=== PATIENT | female | born 1970 | race African-American/Black ===

== ENCOUNTER 2017-02-20 17:22 | Emergency (ER) | payer BC, OTHER ==
[2017-02-20 17:46] VITALS: BP 146/86; PULSE 69; TEMP 98.5; BMI 25.0
[2017-02-20] MEDS ORDERED: KETOROLAC TROMETHAMINE 60 MG/2 ML VIAL ONE (18:17)
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
[2017-02-20] MEDS ORDERED: KETOROLAC TROMETHAMINE 60 MG/2 ML VIAL IM ONE (18:26)
== END 2017-02-20 20:04 | disposition home or self-care (01) ==
LOC: JERFT 17:22
PROC: 3E0233Z Introduction of Anti-inflammatory into Muscle, Percutaneous Approach (ICD-10-PCS; principal; 2017-02-20)
DX: G44.319 Acute post-traumatic headache, not intractable (principal); S39.82XA Other specified injuries of lower back, initial encounter; V43.52XA Car driver injured in collision with other type car in traffic accident, initial encounter; Y92.414 Local residential or business street as the place of occurrence of the external cause; Y93.89 Activity, other specified; Y99.9 Unspecified external cause status
CPT/HCPCS: 99281-25

== ENCOUNTER 2018-10-10 19:34 | Emergency (ER) | payer OTHER ==
[2018-10-10 19:48] VITALS: BP 133/88; PULSE 89; TEMP 98.6; BMI 24.9
--- NOTE | 2018-10-10 19:56 | PDOC ---
Rapid Medical Evaluation Chief Complaint: Nausea/Vomiting Time Seen by Provider: 10/10/18 19:55 Medical Evaluation: Allergies Allergy/AdvReac Type Severity Reaction Status Date / Time sulfamethoxazole Allergy Verified 10/10/18 19:48 [From Bactrim] trimethoprim [From Bactrim] Allergy Verified 10/10/18 19:48 Vital Signs Temp Pulse Resp BP Pulse Ox 98.6 F 89 17 133/88 100 10/10/18 19:45 10/10/18 19:45 10/10/18 19:45 10/10/18 19:45 10/10/18 19:45 10/10/18 20:01 I have performed a brief in-person evaluation of this patient. The patient presents with a chief complaint of: abdominal pain Pertinent physical exam findings:stable and in NAD, non-focal I have ordered the following:labs The patient will proceed to the ED for further evaluation. Discharge Disposition - Discharge Dispostion Last Admission D/C Date: 05/07/99 - Referrals - Patient Instructions - Post Discharge Activity
[2018-10-10 20:16] LABS: BASO % 0.7 % (0-2.0); EOS % 0.7 % (0-4.5); HEMATOCRIT 37.3 % (32.4-45.2); HEMOGLOBIN 12.3 GM/dL (10.7-15.3); LYMPH % 28.9 % (8-40); MCH 28.6 pg (25.7-33.7); MEAN CELL VOLUME 86.9 fl (80-96); MEAN PLT VOLUME 7.8 fl (7.5-11.1); MONO % 6.2 % (3.8-10.2); NEUT % 63.5 % (42.8-82.8); PLATELET COUNT 229 K/MM3 (134-434); RDW 14.8 % (11.6-15.6); WHITE BLOOD COUNT 8.4 K/mm3 (4.0-10.0)
[2018-10-10] MEDS ORDERED: morphine CARPU-JECT 4 MG/1 ML DISP.SYRIN IVPUSH ONE (20:16)
[2018-10-10] MEDS ORDERED: ONDANSETRON 4 MG/2 ML VIAL IVPUSH ONE (20:16)
[2018-10-10] MEDS ORDERED: SODIUM CHLORIDE 1,000 ML IV STA (20:16)
[2018-10-10] MEDS ORDERED: morphine SULFATE 4 MG/ML VIAL ONE (20:44)
[2018-10-10] MEDS ORDERED: ONDANSETRON 4 MG/2 ML VIAL ONE (20:45)
[2018-10-10 20:53] LABS: ALBUMIN 4.1 g/dl (3.4-5.0); ALK PHOS 52 U/L (45-117); ANION GAP 6 MMOL/L (8-16); BILIRUBIN,TOTAL 0.6 mg/dL (0.2-1); BLOOD UREA NITROGEN 8 mg/dL (7-18); CALCIUM 9.2 mg/dL (8.5-10.1); CHLORIDE 109 mmol/L (98-107); CO2 26 mmol/L (21-32); CREATININE 0.6 mg/dL (0.55-1.3); GLUCOSE,RANDOM 109 mg/dL (74-106); LIPASE 217 U/L (73-393); POTASSIUM 3.9 mmol/L (3.5-5.1); SGOT/AST 17 U/L (15-37); SGPT/ALT 18 U/L (13-61); SODIUM 142 mmol/L (136-145); TOT PROT 7.1 g/dl (6.4-8.2)
--- NOTE | 2018-10-10 21:30 | PDOC ---
History of Present Illness - General Chief Complaint: Nausea/Vomiting Stated Complaint: NAUSEA Time Seen by Provider: 10/10/18 19:55 History Source: Patient Exam Limitations: No Limitations Past History - Past Medical History Allergies/Adverse Reactions: Allergies Allergy/AdvReac Type Severity Reaction Status Date / Time sulfamethoxazole Allergy Verified 10/10/18 19:48 [From Bactrim] trimethoprim [From Bactrim] Allergy Verified 10/10/18 19:48 Home Medications: Ambulatory Orders Cyclobenzaprine HCl [Flexeril 10 mg] 10 mg PO BID PRN #20 tablet MDD 2 02/20/17 Ibuprofen [Motrin -] 600 mg PO TID #21 tablet 02/20/17 Anemia: Yes COPD: No - Suicide/Smoking/Psychosocial Hx Smoking Status: No Smoking History: Current every day smoker Have you smoked in the past 12 months: Yes Number of Cigarettes Smoked Daily: 3 Information on smoking cessation initiated: No Hx Alcohol Use: No Drug/Substance Use Hx: No Substance Use Type: None *Physical Exam - Vital Signs Last Vital Signs Temp Pulse Resp BP Pulse Ox 98.6 F 89 17 133/88 100 10/10/18 19:45 10/10/18 19:45 10/10/18 19:45 10/10/18 19:45 10/10/18 19:45 - Physical Exam General Appearance: Yes: Mild Distress (due to pain) Respiratory/Chest: positive: Lungs Clear, Normal Breath Sounds. negative: Respiratory Distress Cardiovascular: positive: Regular Rhythm, Regular Rate, S1, S2. negative: Murmur Gastrointestinal/Abdominal: positive: Soft, Tenderness (along RUQ and LUQ (RUQ> LUQ), +montoya's sign). negative: Distended, Guarding, Rebound, Hernia, Mass Musculoskeletal: negative: CVA Tenderness Integumentary: positive: Normal Color Neurologic: positive: Alert, Normal Mood/Affect ED Treatment Course - LABORATORY CBC & Chemistry Diagram: 10/10/18 20:00 10/10/18 20:00 - ADDITIONAL ORDERS Additional order review: Laboratory Results 10/10/18 20:00 Sodium 142 Potassium 3.9 Chloride 109 H Carbon Dioxide 26 Anion Gap 6 L BUN 8 Creatinine 0.6 Creat Clearance w eGFR 107.16 Random Glucose 109 H Calcium 9.2 Total Bilirubin 0.6 AST 17 ALT 18 Alkaline Phosphatase 52 Total Protein 7.1 Albumin 4.1 Lipase 217 10/10/18 20:00 RBC 4.30 MCV 86.9 MCHC 33.0 RDW 14.8 MPV 7.8 Neutrophils % 63.5 Lymphocytes % 28.9 Monocytes % 6.2 Eosinophils % 0.7 Basophils % 0.7 - RADIOLOGY Radiology Studies Ordered: Category Date Time Status ABDOMEN US -LIMITED [US] Stat Ultrasound 10/10/18 20:17 Ordered - Medications Given in the ED: ED Medications Discontinued Medications Generic Name Dose Route Start Last Admin Trade Name Comfort PRN Reason Stop Dose Admin Sodium Chloride 1,000 mls @ 1,000 mls/hr 10/10/18 20:16 10/10/18 21:02 Normal Saline - IV 10/10/18 21:15 1,000 mls/hr ASDIR STA Administration Morphine Sulfate 4 mg 10/10/18 20:16 10/10/18 21:00 Morphine Injection - IVPUSH 10/10/18 20:17 4 mg ONCE ONE Administration Ondansetron HCl 4 mg 10/10/18 20:16 10/10/18 20:58 Zofran Injection IVPUSH 10/10/18 20:17 4 mg ONCE ONE Administration Medical Decision Making - Medical Decision Making 48 y/o F with hx of x 2, partial hysterectomy (due to fibroids) presents with constant RUQ pain that started at 4 PM today along with back pain and 3 episodes of NBNB emesis. RUQ pain radiates along R lower ribs/chest. Pain is not worse with food; patient's last meal was breakfast and had no further food since then. Denies having this pain before. Has not taken anything for pain since. Denies fever, sob, diarrhea, urinary complaints. Denies alcohol/ drug use, smoking. Denies FH of CAD or AL. Consider cholecystitis; not suspicious for ACS given no significant risk factors Plan: Labs, RUQ sono, EKG, IVF, Zofran, Morphine, reassess 10/10/18 21:23 LFTs normal Lipase normal RUQ sono shows gallstones, no evidence of cholecystitis Patient given Motrin as states her pain was returning Patient later reassessed and feeling better; also passed PO challenge Stable for d/c Will refer to surgery 10/11/18 00:29 *DC/Admit/Observation/Transfer Diagnosis at time of Disposition: Biliary colic - Discharge Dispostion Disposition: HOME Condition at time of disposition: Improved Decision to Admit order: No - Referrals Referrals: Tej Bingham MD [Staff Physician] - 2 Days - Patient Instructions Printed Discharge Instructions: DI for Gallstones Additional Instructions: Thank you for choosing [facility]. It was a pleasure taking care of you. You were found to have gallstones Avoid eating foods high in fat as that may precipitate the pain You were referred to surgery for further evaluation Return to the Emergency Department if your symptoms worsen or persist, you have fever, shortness of breath, chest pain, severe abdominal pain, vomiting or other concerning symptoms. - Post Discharge Activity
[2018-10-10 22:39] LABS: EPI CELLS 10.4 /HPF (0-5/HPF); HCG,QUALITATIVE URINE Negative; URINE APPEARANCE CLEAR; URINE BACTERIA 22.3 /hpf (NEGATIVE); URINE BILIRUBIN NEGATIVE (NEGATIVE); URINE CASTS 5 /lpf (0-8); URINE COLOR YELLOW; URINE GLUCOSE (UA) NEGATIVE (NEGATIVE); URINE KETONE NEGATIVE (NEGATIVE); URINE LEUK ESTERASE NEGATIVE (NEGATIVE); URINE NITRITE NEGATIVE (NEGATIVE); URINE PROTEIN NEGATIVE (NEGATIVE); URINE RBC 2 /hpf (0-4); URINE UROBILINOGEN 0.2 mg/dL (0.2-1.0); URINE WBC 2 /hpf (0-5)
--- NOTE | 2018-10-10 23:11 | PDOC ---
*Physical Exam - Vital Signs Last Vital Signs Temp Pulse Resp BP Pulse Ox 98.6 F 89 17 133/88 100 10/10/18 19:45 10/10/18 19:45 10/10/18 19:45 10/10/18 19:45 10/10/18 19:45 ED Treatment Course - LABORATORY CBC & Chemistry Diagram: 10/10/18 20:00 10/10/18 20:00 - ADDITIONAL ORDERS Additional order review: Laboratory Results 10/10/18 10/10/18 21:51 20:00 Sodium 142 Potassium 3.9 Chloride 109 H Carbon Dioxide 26 Anion Gap 6 L BUN 8 Creatinine 0.6 Creat Clearance w eGFR 107.16 Random Glucose 109 H Calcium 9.2 Total Bilirubin 0.6 AST 17 ALT 18 Alkaline Phosphatase 52 Total Protein 7.1 Albumin 4.1 Lipase 217 Urine Color Yellow Urine Appearance Clear Urine pH 8.0 D Ur Specific [place] 1.012 Urine Protein Negative Urine Glucose (UA) Negative Urine Ketones Negative Urine Blood Trace Urine Nitrite Negative Urine Bilirubin Negative Urine Urobilinogen 0.2 Ur Leukocyte Esterase Negative Urine WBC (Auto) 2 Urine RBC (Auto) 2 Urine Casts (Auto) 5 U Pathogenic Cast Auto No Result Required. U Epithel Cells (Auto) 10.4 U Sm Round Cell (Auto) No Result Required. Urine Crystals (Auto) No Result Required. Urine Bacteria (Auto) 22.3 Urine HCG, Qual Negative 10/10/18 20:00 RBC 4.30 MCV 86.9 MCHC 33.0 RDW 14.8 MPV 7.8 Neutrophils % 63.5 Lymphocytes % 28.9 Monocytes % 6.2 Eosinophils % 0.7 Basophils % 0.7 - Medications Given in the ED: ED Medications Discontinued Medications Generic Name Dose Route Start Last Admin Trade Name Freq PRN Reason Stop Dose Admin Sodium Chloride 1,000 mls @ 1,000 mls/hr 10/10/18 20:16 10/10/18 21:02 Normal Saline - IV 10/10/18 21:15 1,000 mls/hr ASDIR STA Administration Morphine Sulfate 4 mg 10/10/18 20:16 10/10/18 21:00 Morphine Injection - IVPUSH 10/10/18 20:17 4 mg ONCE ONE Administration Ondansetron HCl 4 mg 10/10/18 20:16 10/10/18 20:58 Zofran Injection IVPUSH 10/10/18 20:17 4 mg ONCE ONE Administration Medical Decision Making - Medical Decision Making 10/10/18 23:10 Case discussed with LEXI Chand Agree with assessment and plan *DC/Admit/Observation/Transfer Diagnosis at time of Disposition: Biliary colic - Referrals - Patient Instructions - Post Discharge Activity
[2018-10-10] MEDS ORDERED: IBUPROFEN 600 MG TABLET (FP) PO ONE ×2 (23:49→23:57)
--- NOTE | 2018-10-11 10:40 | EKG ---
Test Reason : Blood Pressure : / mmHG Vent. Rate : 072 BPM Atrial Rate : 072 BPM P-R Int : 194 ms QRS Dur : 080 ms QT Int : 386 ms P-R-T Axes : 059 041 044 degrees QTc Int : 422 ms NORMAL SINUS RHYTHM NORMAL ECG WHEN COMPARED WITH ECG OF 03-DEC-2010 14:35, NO SIGNIFICANT CHANGE WAS FOUND Confirmed by NOVA VENEGAS MD ([id number]) on 10/11/2018 10:40:04 AM Referred By: Confirmed By:NOVA VENEGAS MD
== END 2018-10-11 00:50 | disposition home or self-care (01) ==
LOC: JER 19:34
PROC: 3E0337Z Introduction of Electrolytic and Water Balance Substance into Peripheral Vein, Percutaneous Approach (ICD-10-PCS; principal; 2018-10-10)
PROC: 3E033NZ Introduction of Analgesics, Hypnotics, Sedatives into Peripheral Vein, Percutaneous Approach (ICD-10-PCS; 2018-10-10)
PROC: 3E033GC Introduction of Other Therapeutic Substance into Peripheral Vein, Percutaneous Approach (ICD-10-PCS; 2018-10-10)
DX: K80.50 Calculus of bile duct without cholangitis or cholecystitis without obstruction (principal)
CPT/HCPCS: 36415; 76705-TC; 80053; 81003; 83690; 84703; 85025; 93005; 93010; 99283-25; J7030

== ENCOUNTER 2020-10-05 03:11 | Emergency (ER) | payer OTHER ==
[2020-10-05 04:09] VITALS: BMI 24.9
[2020-10-05] MEDS ORDERED: KETOROLAC TROMETHAMINE 30 MG/1 ML VIAL IVPUSH ONE (04:59)
[2020-10-05] MEDS ORDERED: morphine CARPU-JECT 2 MG/1 ML DISP.SYRIN IVPUSH ONE (04:59)
[2020-10-05] MEDS ORDERED: MORPHINE SULFATE 2 MG/ML VIAL ONE (05:13)
[2020-10-05] MEDS ORDERED: KETOROLAC TROMETHAMINE 30 MG/1 ML VIAL ONE (05:13)
[2020-10-05 06:47] LABS: BASO % 0.7 % (0-2.0); EOS % 1.7 % (0-4.5); HEMATOCRIT 38.6 % (32.4-45.2); LYMPH % 31.3 % (8-40); MCH 30.3 pg (25.7-33.7); MCHC 33.6 g/dl (32.0-36.0); MEAN CELL VOLUME 90.3 fl (80-96); MEAN PLT VOLUME 8.6 fl (7.5-11.1); MONO % 6.2 % (3.8-10.2); NEUT % 60.1 % (42.8-82.8); PLATELET COUNT 260 K/MM3 (134-434); RBC 4.27 M/mm3 (3.60-5.2); RDW 15.4 % (11.6-15.6); WHITE BLOOD COUNT 5.3 K/mm3 (4.0-10.0)
[2020-10-05 06:57] LABS: CHLORIDE 105 mmol/L (98-107); SODIUM 121 mmol/L (136-145)
[2020-10-05 06:59] LABS: CALCIUM 8.7 mg/dL (8.5-10.1)
[2020-10-05 07:00] LABS: BLOOD UREA NITROGEN 8.6 mg/dL (7-18); CO2 27 mmol/L (21-32); GLUCOSE,RANDOM 92 mg/dL (74-106)
[2020-10-05 07:03] LABS: CREATININE 0.7 mg/dL (0.55-1.3)
[2020-10-05 07:05] LABS: TOT PROT 9.3 g/dl (6.4-8.2)
[2020-10-05 07:06] LABS: ALK PHOS 56 U/L (45-117)
[2020-10-05 07:08] VITALS: BP 114/76; PULSE 78; TEMP 100
[2020-10-05 07:30] LABS: ANION GAP -11 MMOL/L (8-16)
[2020-10-05] MEDS ORDERED: LIDOCAINE 5% TOPICAL PATCH TP ONE (09:37)
[2020-10-05] MEDS ORDERED: ACETAMINOPHEN 1000 MG/100 ML VIAL (NON FORMULARY) IVPB ONE (09:37)
[2020-10-05] MEDS ORDERED: ACETAMINOPHEN INJECTION 100 ML IVPB ONE (10:01)
[2020-10-05] MEDS ORDERED: LIDOCAINE 5% TOPICAL PATCH ONE (10:01)
[2020-10-05 11:02] LABS: BLOOD UREA NITROGEN 7.8 mg/dL (7-18); CALCIUM 9.4 mg/dL (8.5-10.1)
[2020-10-05 11:03] LABS: CREATININE 0.6 mg/dL (0.55-1.3)
[2020-10-05] MEDS ORDERED: LIDOCAINE PATCH REMOVAL MC SCH (22:00)
== END 2020-10-05 12:15 | disposition home or self-care (01) ==
LOC: JER 03:11
PROC: 3E0333Z Introduction of Anti-inflammatory into Peripheral Vein, Percutaneous Approach (ICD-10-PCS; principal; 2020-10-05)
PROC: 3E0333Z Introduction of Anti-inflammatory into Peripheral Vein, Percutaneous Approach (ICD-10-PCS; 2020-10-05)
PROC: 3E033NZ Introduction of Analgesics, Hypnotics, Sedatives into Peripheral Vein, Percutaneous Approach (ICD-10-PCS; 2020-10-05)
DX: M54.32 Sciatica, left side (principal)
CPT/HCPCS: 36415; 80048; 80053; 85025; 93971-TC; 99284-25; J0131